=== PATIENT | male | born 1975 | race Two or more races ===

== ENCOUNTER 2021-06-14 13:54 | Outpatient (CLI) | payer OTHER ==
[2021-06-14 14:48] VITALS: BP 137/92
--- NOTE | 2021-06-14 14:48 | SLEEP CARE CONSULTATION ---
Information from patient questionnaire entered by Henrietta Dominguez. I have reviewed and concur with the information entered by Henrietta Dominguez. This document represents the service I personally performed and the decisions made by me, Ekta Bell ARNP. History of Present Illness Service Date and Time: 06/14/2021 1354 Reason for Visit: New patient Chief Complaint: reports: Unrefreshed sleep, Snoring, Excessive daytime sleepiness, Observed pauses in breathing, Frequent awakenings at night Date of Onset: 2014 Usual bedtime: 4903-1303 Time it takes to fall asleep: 10-60 minutes Snores at night: Yes Observed to quit breathing while asleep: Yes Sleeps alone due to snoring: No Number of times waking at night: 1-4 Reasons for waking at night: reports: Snoring, Other (unknown reason) Toss, Turn, or Twitch while sleeping: Yes Recalls having dreams: No (he cannot tell last time he remembered a dream) Usually gets out of bed at: [id number]; weekends 0700 if has a drink the night before Feels refreshed in the morning: No Morning headache: Yes (almost daily; last until he gets to work and drinks his coffee; annoying MONAE) Sleepy or fatigued during the day: Yes Ever fallen asleep while driving: No Takes day naps: Yes (tries to get one daily; 30 mins to 2 hours) Dreams during day naps: No Prior sleep studies: No Additional HPI information: I had the pleasure of seeing SUPRIYA ESPINOSA today regarding the possibility of him having a sleep disorder. His current complaints are frequent night awakenings, observed pauses in breathing, snoring and unrefreshed sleep. His has told him he stops breathing at night. He snores loudly as well but his still sleeps in same room. He wakes up 1-4 times a night but about once a week he will wake hourly for unknown reasons. He has woke himself up snoring but denies gasping for air or choking. He states if he sleeps on his right side he has very bad heartburn. He does not ever wake up feeling rested. He wakes up with a headache nearly every morning that resolves after he gets his first coffee at work. He denies drowsy driving. He has a brother who snores loudly but who has never been evaluated for sleep disorders. Patient has a history of hypertension but he did not like the way the medication made him feel so he stopped taking it. - Parasomnia Symptoms Ever been unable to move upon waking from sleep: Yes (a long time ago, 20-25 yrs ago) Walks in sleep: No Talks in sleep: No Ever acted out dreams in sleep: No Ever felt weak in the knees when startled or emotional: No Bothered by creepy, crawly, restless sensations in legs: No Problems with memory or concentration: Yes (both) Subjective Initial [place] Sleepiness Scale score: 15 (in 2020) Past Medical History Past Medical History: reports: Hypertension (not taking meds, did not like how they made him feel), Other (Vit D deficiency) Social History The patient's occupation is a [employer]. Patient is and lives in [place]. Have you smoked in the past 12 months: Yes Cigarettes per day (20/pack): 2 (1 pack per week) Years of smokin Smoking Pack Years: 1.5 Alcohol use: Yes Alcohol amount and frequency: 1 bottle or 6 pack, on weekends Caffeine use: Yes Caffeine amount and frequency: 20oz coffee/daily Family History Family history of sleep disordered breathing: Yes Family Hx Sleep Apnea: Sibling: Snoring, Sleep apnea - Untreated Allergies and Home Medications Drug allergies reviewed: Yes (NKDA) Home medication list reviewed: Yes Allergy and home medication list: Vitamin D Review of Systems Weight gain over past 5 years: 50 Weight loss over past 5 years: 50 Cardiovascular: reports: high blood pressure Respiratory: reports: chronic cough Gastrointestinal: reports: heartburn (only when on his right side) Neurological: reports: headaches Psychiatric: denies: anxiety, depression Ear/Nose/Throat: reports: other (static left ear). denies: sinus problems, injury to nose, tonsillectomy Musculoskeletal: reports: back pain Immunologic: denies: allergies to food or environment Physical Exam Blood Pressure: 137/92 Cuff size: wrist Heart Rate: 94 O2 Saturation: 95 Height: 6 ft Weight: 228 lb Body Mass Index: 30.9 BMI Classification: Obese Neck circumference: 16 (inches) Mouth and throat: narrow oropharynx Soft palate: long Hard palate: arched Uvula: normal Uvula visualization: 50% Mallampati Class II Tongue: enlarged in size with teeth rahman on lateral edges Tonsils: 1+ Neck: normal w/o lymphadenopathy or thyromegaly Heart: regular rate and rhythm Lungs: clear bilaterally Impression and Plan 1. Suspected Obstructive Sleep Apnea-Hypopnea Syndrome, suggested by a history of loud and irregular snoring, observed cessation of breath while asleep, morning headache, frequent awakening during the night, unrefreshed sleep, cognitive impairment, and excessive daytime sleepiness. Narrow oropharynx and obesity are common predisposing factors for obstructive sleep apnea-hypopnea syndrome. I recommend proceeding to polysomnography to confirm the diagnosis and to assess severity. If the patient has significant sleep disordered breathing, a manual CPAP titration study will also be performed to find the optimal treatment pressure. I informed the patient of what the sleep studies involve and after some discussion, obtained agreement to proceed. The pathophysiology of obstructive sleep apnea-hypopnea syndrome was discussed with the patient and health risks of cardiovascular and cerebrovascular disease if not treated. [facility] brochure for obstructive sleep apnea-hypopnea syndrome given and reviewed. 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 Patient agreed to plan. * Schedule polysomnography +- manual CPAP titration study and return in 1-2 weeks after the study to discuss result and initiate therapy. * Avoid long distance driving or driving when feeling sleepy. * Avoid alcohol, sedative and muscle relaxant around bedtime. * Attempt to lose weight. * Review instructions provided by trained office staff on how to prepare for the sleep study. * Return for follow-up after sleep study completed. Counseling Topics: Weight loss health impact Visit Type: In Office Time Spent with Patient (minutes): 31 Provider Statement: I spent 100% of the Face to Face Visit with the patient with greater than 50% spent counseling the patient and coordination of care.
== END 2021-06-14 13:55 | disposition home or self-care (01) ==
LOC: SC 13:54
PROVIDERS: ATTEND Nurse Practitioner Family
DX: R06.83 Snoring (principal); R51.9 Headache, unspecified; G47.8 Other sleep disorders; G47.10 Hypersomnia, unspecified; E66.9 Obesity, unspecified; Z68.30 Body mass index [BMI] 30.0-30.9, adult; R41.89 Other symptoms and signs involving cognitive functions and awareness
CPT/HCPCS: 99203; 99212

== ENCOUNTER 2021-10-24 20:46 | Outpatient (CLI) | payer OTHER | END 2021-10-24 20:47 | disposition home or self-care (01) | LOC: SC 20:46 | PROVIDERS: ATTEND Nurse Practitioner Family | DX: G47.33 Obstructive sleep apnea (adult) (pediatric) (principal) | CPT/HCPCS: 95810 ==

== ENCOUNTER 2021-11-23 15:22 | Outpatient (CLI) | payer OTHER ==
[2021-11-23 15:55] VITALS: BP 129/77
--- NOTE | 2021-11-23 15:55 | SLEEP CARE CONSULTATION ---
Information from patient questionnaire entered by Yo Jasmine MA. I have reviewed and concur with the information entered by Yo Jasmine MA. This document represents the service I personally performed and the decisions made by , Ekta Bell ARNP. History of Present Illness Service Date and Time: 11/23/2021 1522 Initial [place] Sleepiness Scale score: 15 (in 2020) Current [place] Sleepiness Scale score: 15 (11/2021) Additional HPI information: SUPRIYA ESPINOSA returns for follow up and results of the recently performed polysomnography. I explained the pathophysiology behind obstructive sleep apnea. We then spent quite a bit of time discussing different treatment options. For mild obstructive sleep apnea, surgery and oral appliance are alternatives to nasal CPAP therapy but in moderate or severe cases, nasal CPAP is the most effective and reliable treatment. Because apnea is primarily in supine position, then positional management therapy could be effective. Methods discussed such as positioning with pillows to prevent supine sleep. I reviewed the impact of weight changes on sleep apnea and strongly recommended losing weight. After some discussion, the patient opted to go with the nasal CPAP therapy. Nasal autoCPAP set at 5-20 cmH20 will be ordered with rationale explained. A manual titration study will be ordered if unable to find optimal pressure with office adjustments. I explained how CPAP machine works and what to expect when using the machine. Using CPAP every night in order to get used to it was emphasized. Patient advised to put CPAP mask on before getting into bed so as not to fall asleep without CPAP. To assist acclimation to CPAP use, it could also be used for a short time during day while reading or watching TV. The patient was instructed to call the CPAP supplier to discuss any mechanical problem that may occur. If the mask given is uncomfortable or is difficult to keep on through the night even with adjustment, contact the CPAP supplier as many will replace with another mask style if notified before 30 days. If snoring or perceives is not getting enough air or too much air from the machine, notify this office. [facility] patient education PAP tips reviewed and given to patient. Patient counseled not drink alcohol less than 4 hours before bedtime as it can increase snoring and apnea. Patient was cautioned about risks of drowsy driving until sleepiness symptoms resolve. Patient denies drowsy driving. Sleep Study - Results Type of Sleep Study: Polysomnography (F/U POLY) Prior sleep studies: No Polysomnography/Home Sleep Study results: IMPRESSION: The quality of the study is good. The patient had normal sleep efficiency. Despite moderate sleep fragmentation, the sleep architecture was relatively normal. Respiratory monitoring showed severe obstructive sleep apnea-hypopnea (AHI = 46.4) associated with frequent arousals, oxyhemoglobin desaturation and moderate hypoxia (thalia oxygen saturation of 76%). Baseline oxygen saturation was normal. The respiratory events occurred more frequently during supine sleep (supine AHI = 60.1; non-supine = 31.87). Snore was loud in intensity. There was no significant periodic leg movement of sleep. Cardiac rhythm was normal sinus rhythm without significant arrhythmia. No abnormal behavior (parasomnia) observed during the night. Allergies and Home Medications Home medication list reviewed: Yes (no changes) Review of Systems Review of systems same as previous: Yes (no changes) Physical Exam Vital signs obtained and entered by: Benja JASMINE CMA AAVINAYAK Blood Pressure: 129/77 (RIGHT, PUSE 81, RESP 18, ) Heart Rate: 82 O2 Saturation: 98 (PAPER MASK) Height: 6 ft Weight: 235 lb (PT CLOTHES) Body Mass Index: 31.8 BMI Classification: Obese Impression and Plan 1. Obstructive Sleep Apnea-Hypopnea Syndrome, severe, with lowest oxygen saturation of 76%. Obviously this is the cause of the patients symptoms of unrefreshed sleep, and excessive daytime sleepiness. Positive pressure therapy could benefit hypertension. As mentioned above, the patient will be started on nasal autoCPAP therapy with pressure set at 5-20 cmH2O. Compliance guidelines also reviewed. A copy of compliance guidelines will be given for reference at check out. Because the apnea is more severe supine, I instructed to avoid sleeping supine using pillow positioning until able to start CPAP use. 2. Hypoxemia, moderate, with a thalia oxygen saturation of 76% and 26.8 minutes with SpO2 under 90%. His baseline oxygen saturation was normal with an average of 93%. * Nasal auto CPAP therapy, pressure at 5-20 cm H2O. * Attempt to lose weight. * Avoid alcohol consumption near bedtime. * Avoid supine sleep until using CPAP. * The patient is again cautioned about driving until sleepiness completely resolves. * Return one month after CPAP obtained. I will assess response to therapy and compliance at that time. Counseling Topics: Weight loss health impact Visit Type: In Office Time Spent with Patient (minutes): 22 Provider Statement: I spent 100% of the Face to Face Visit with the patient with greater than 50% spent counseling the patient and coordination of care.
== END 2021-11-23 15:23 | disposition home or self-care (01) ==
LOC: SC 15:22
PROVIDERS: ATTEND Nurse Practitioner Family
DX: G47.33 Obstructive sleep apnea (adult) (pediatric) (principal); R09.02 Hypoxemia; E66.9 Obesity, unspecified; Z68.31 Body mass index [BMI] 31.0-31.9, adult
CPT/HCPCS: 99212; 99213